=== PATIENT | male | born 1930 | race Caucasian/White ===

== ENCOUNTER 2017-02-13 22:39 | Inpatient (IN) | payer OTHER ==
[~2017-02-13] VITALS: Ht 180.3 cm; Wt 85.3 kg
[~2017-02-13 22:39] MED LIST: AMOXICILLIN875 MG PO; ARICEPT5 MG PO; DOXYCYCLINE HY100 MG PO; FLOMAX 0.4 MG0.4 MG PO; GLUCOPHAGE1000 MG PO; JANUVIA100 MG PO; LISINOPRIL10 MG PO; NAMENDA XR28 MG PO; QUETIAPINE FUM100 MG PO; RISPERDAL1 MG PO; SIMVASTATIN20 MG PO; ZETIA10 MG PO
[2017-02-14 00:51] LABS: HEMOGLOBIN 13.3 gm/dl (14.0-17.5); RED BLOOD COUNT 4.2 M/UL (4.20-5.50); WHITE BLOOD COUNT 9.6 K/UL (4.5-11.0)
[2017-02-14 06:00] LABS: BUN/CREATININE RATIO 25 (0-10)
[2017-02-14] MEDS ORDERED: PIOGLITAZONE HC45 MG PO (10:25)
[2017-02-14] MEDS ORDERED: SYNTHROID75 MCG PO (10:26)
[2017-02-15 07:16] LABS: HEMOGLOBIN 12.6 gm/dl (14.0-17.5); RED BLOOD COUNT 4.11 M/UL (4.20-5.50)
[2017-02-15 07:30] LABS: WHITE BLOOD COUNT 14.4 K/UL (4.5-11.0)
[2017-02-15 07:38] LABS: BUN/CREATININE RATIO 20 (0-10)
[2017-02-16 05:52] LABS: HEMOGLOBIN 12.1 gm/dl (14.0-17.5); RED BLOOD COUNT 3.83 M/UL (4.20-5.50)
[2017-02-16 05:59] LABS: WHITE BLOOD COUNT 9.4 K/UL (4.5-11.0)
--- NOTE | 2017-02-16 13:45 | NUR ---
PATIENT UP IN CHAIR WITH 2 ASSIST, PATIENT MITCHELL WELL
[2017-02-17 04:44] LABS: BUN/CREATININE RATIO 19 (0-10)
[2017-02-18 04:45] LABS: BUN/CREATININE RATIO 15 (0-10)
[2017-02-19 06:06] LABS: HEMOGLOBIN 11.4 gm/dl (14.0-17.5); RED BLOOD COUNT 3.6 M/UL (4.20-5.50); WHITE BLOOD COUNT 8.8 K/UL (4.5-11.0)
[2017-02-19 06:29] LABS: BUN/CREATININE RATIO 12 (0-10)
== END 2017-02-19 16:54 | DRG 683 ==
LOC: ER1 22:39 → ZEROF 02-14 02:00 → MED SURG 4 02-14 02:00 → ZEROF 02-14 04:50 → MED SURG 4 02-14 04:50
PROVIDERS: Emergency Medicine; Family Medicine; Internal Medicine; Physician Assistant Medical; ADMIT Internal Medicine
DX: N17.9 Acute kidney failure, unspecified (principal); M62.82 Rhabdomyolysis; I12.9 Hypertensive chronic kidney disease with stage 1 through stage 4 chronic kidney disease, or unspecified chronic kidney disease; N18.9 Chronic kidney disease, unspecified; E11.22 Type 2 diabetes mellitus with diabetic chronic kidney disease; E87.6 Hypokalemia; F03.90 Unspecified dementia, unspecified severity, without behavioral disturbance, psychotic disturbance, mood disturbance, and anxiety; R44.1 Visual hallucinations; R53.81 Other malaise; N40.0 Benign prostatic hyperplasia without lower urinary tract symptoms; E83.42 Hypomagnesemia; H91.90 Unspecified hearing loss, unspecified ear; E03.9 Hypothyroidism, unspecified; Z82.49 Family history of ischemic heart disease and other diseases of the circulatory system; Z87.891 Personal history of nicotine dependence; Z51.89 Encounter for other specified aftercare; Z79.899 Other long term (current) drug therapy
CPT/HCPCS: 36415; 51701; 70450; 71010; 80048; 80053; 81001; 82550; 82553; 82962; 83036; 83735; 83874; 84443; 84484; 85025; 85027; 86140; 87040; 87086; 93005; 97110; 97116; 97530; 99285; G0378; J1650; J7030

== ENCOUNTER 2017-03-28 12:46 | Inpatient (IN) | payer MEDICARE, OTHER ==
[~2017-03-28] VITALS: Ht 167.6 cm; Wt 79.8 kg
[~2017-03-28 12:46] MED LIST changes: +PIOGLITAZONE HC45 MG PO; +SYNTHROID75 MCG PO
[2017-03-28 13:52] LABS: HEMOGLOBIN 13.4 gm/dl (14.0-17.5); RED BLOOD COUNT 4.31 M/UL (4.20-5.50); WHITE BLOOD COUNT 13.8 K/UL (4.5-11.0)
[2017-03-29] MEDS ORDERED: NORVASC 5 MG TAB5 MG PO (00:30)
[2017-03-29 04:21] LABS: HEMOGLOBIN 12.7 gm/dl (14.0-17.5); RED BLOOD COUNT 4.16 M/UL (4.20-5.50); WHITE BLOOD COUNT 13.7 K/UL (4.5-11.0)
[2017-03-30 04:33] LABS: HEMOGLOBIN 11.9 gm/dl (14.0-17.5); RED BLOOD COUNT 3.92 M/UL (4.20-5.50); WHITE BLOOD COUNT 11.5 K/UL (4.5-11.0)
[2017-03-30 04:45] LABS: BUN/CREATININE RATIO 17 (0-10)
[2017-03-31 04:26] LABS: RED BLOOD COUNT 3.97 M/UL (4.20-5.50)
[2017-03-31 04:28] LABS: WHITE BLOOD COUNT 7.7 K/UL (4.5-11.0)
[2017-03-31 04:57] LABS: BUN/CREATININE RATIO 13 (0-10)
[2017-04-01 04:18] LABS: HEMOGLOBIN 12.1 gm/dl (14.0-17.5); RED BLOOD COUNT 3.98 M/UL (4.20-5.50); WHITE BLOOD COUNT 7.9 K/UL (4.5-11.0)
[2017-04-01 04:38] LABS: BUN/CREATININE RATIO 15 (0-10)
[2017-04-02 03:45] LABS: HEMOGLOBIN 12.5 gm/dl (14.0-17.5); RED BLOOD COUNT 4.12 M/UL (4.20-5.50); WHITE BLOOD COUNT 8.3 K/UL (4.5-11.0)
[2017-04-02 04:09] LABS: BUN/CREATININE RATIO 18 (0-10)
[2017-04-02] MEDS ORDERED: MAGNESIUM OXID400 MG PO (12:03)
[2017-04-02] MEDS ORDERED: LEVAQUIN250 MG PO (12:04)
== END 2017-04-02 13:50 | disposition home health service (06) | DRG 871 ==
LOC: ER1 12:46 → PROG CARE 17:21 → ZEROF 17:21 → PROG CARE 03-29 00:31
PROVIDERS: Emergency Medicine; ADMIT Internal Medicine
DX: A41.9 Sepsis, unspecified organism (principal); R65.21 Severe sepsis with septic shock; N10 Acute pyelonephritis; N17.9 Acute kidney failure, unspecified; B96.4 Proteus (mirabilis) (morganii) as the cause of diseases classified elsewhere; I12.9 Hypertensive chronic kidney disease with stage 1 through stage 4 chronic kidney disease, or unspecified chronic kidney disease; E11.22 Type 2 diabetes mellitus with diabetic chronic kidney disease; N18.3 Chronic kidney disease, stage 3 (moderate); E11.649 Type 2 diabetes mellitus with hypoglycemia without coma; E03.9 Hypothyroidism, unspecified; E87.6 Hypokalemia; E83.42 Hypomagnesemia; R74.8 Abnormal levels of other serum enzymes; F03.90 Unspecified dementia, unspecified severity, without behavioral disturbance, psychotic disturbance, mood disturbance, and anxiety; F17.210 Nicotine dependence, cigarettes, uncomplicated; H91.90 Unspecified hearing loss, unspecified ear; Z79.84 Long term (current) use of oral hypoglycemic drugs; Z79.899 Other long term (current) drug therapy
CPT/HCPCS: ECHO; 36415; 51702; 70450; 71010; 80048; 80053; 81001; 82962; 83605; 83690; 83735; 83880; 84484; 85025; 85027; 85610; 85730; 87040; 87077; 87086; 87186; 93005; 93306; 96361; 96365; 96366; 96372; 97116; 97530; 99285; J1650; J1956; J7030

== ENCOUNTER 2017-04-15 12:49 | Inpatient (IN) | payer MEDICARE, OTHER ==
[~2017-04-15] VITALS: Ht 182.9 cm; Wt 77.6 kg
[~2017-04-15 12:49] MED LIST changes: +LEVAQUIN250 MG PO; +MAGNESIUM OXID400 MG PO; +NORVASC 5 MG TAB5 MG PO
[2017-04-15 13:09] LABS: HEMOGLOBIN 13.2 gm/dl (14.0-17.5); RED BLOOD COUNT 4.35 M/UL (4.20-5.50)
[2017-04-15] MEDS ORDERED: LISINOPRIL5 MG PO (18:26)
[2017-04-15] MEDS ORDERED: NORVASC 5 MG TAB5 MG PO (18:27)
[2017-04-15] MEDS ORDERED: ACTOS45 MG PO (18:30)
[2017-04-15] MEDS ORDERED: SEROQUEL100 MG PO (18:30)
[2017-04-15] MEDS ORDERED: ZETIA 10 MG TAB10 MG PO (18:31)
[2017-04-16 05:33] LABS: HEMOGLOBIN 15.4 gm/dl (14.0-17.5); RED BLOOD COUNT 5.09 M/UL (4.20-5.50); WHITE BLOOD COUNT 13.5 K/UL (4.5-11.0)
[2017-04-17 04:30] LABS: BUN/CREATININE RATIO 16 (0-10)
[2017-04-20 06:29] LABS: BUN/CREATININE RATIO 18 (0-10)
--- NOTE | 2017-04-21 18:33 | NUR ---
PATIENT DISCHARGE TO HOME WITH DISCHARGE ORDERS GIVEN R/T MEDICATIONS, CARE , HOME HEALTH CARE, DISCHARGE PAPERS PROVIDED AND FAMILY VERB UNDERSTANDING. PATIENT DISCHARGE VIA WHEELCHAIR. LEFT MESSAGE TO [facility]
== END 2017-04-21 18:36 | disposition home or self-care (01) | DRG 683 ==
LOC: ER1 12:49 → ZEROF 15:26 → MED SURG 4 15:26
PROVIDERS: Family Medicine; ADMIT Emergency Medicine
DX: N17.9 Acute kidney failure, unspecified (principal); N39.0 Urinary tract infection, site not specified; E87.1 Hypo-osmolality and hyponatremia; T76.01XA Adult neglect or abandonment, suspected, initial encounter; E11.22 Type 2 diabetes mellitus with diabetic chronic kidney disease; E11.65 Type 2 diabetes mellitus with hyperglycemia; N18.3 Chronic kidney disease, stage 3 (moderate); F03.90 Unspecified dementia, unspecified severity, without behavioral disturbance, psychotic disturbance, mood disturbance, and anxiety; E03.9 Hypothyroidism, unspecified; N40.0 Benign prostatic hyperplasia without lower urinary tract symptoms; Z79.899 Other long term (current) drug therapy; Z87.891 Personal history of nicotine dependence; Z82.49 Family history of ischemic heart disease and other diseases of the circulatory system; R07.9 Chest pain, unspecified; E78.5 Hyperlipidemia, unspecified; I12.9 Hypertensive chronic kidney disease with stage 1 through stage 4 chronic kidney disease, or unspecified chronic kidney disease; D64.9 Anemia, unspecified
CPT/HCPCS: 36415; 71010; 71250; 80048; 80053; 81001; 82550; 82553; 82962; 83735; 83874; 84439; 84443; 84484; 85025; 87040; 87086; 93005; 94640; 94664; 96365; 97110; 97116; 97530; 99285; G0378; J1956; J2550; J7030